=== PATIENT | female | born 1950 | race Caucasian/White ===

== ENCOUNTER 2021-09-18 08:29 | Day surgery (SDC) | payer MEDICARE, SELFPAY ==
[2021-09-14 13:39] VITALS: BMI 26.4
--- NOTE | 2021-09-17 12:07 | HO.ANESPROP2 ---
Documented by User: Cami Mccloud NP 09/17/21 12:08 HPI - Anesthesia Eval Consult details Narrative: 70yo F for Colonoscopy [facility] Past Medical History Medical History (Updated 09/14/21 @ 13:40 by Imelda Morris RN) Alopecia areata Asthma Chest tightness Hypothyroid Surgical History Surgical History (Updated 09/14/21 @ 11:48 by Imelda Morris RN) H/O colonoscopy Social History Social History Patient Tobacco Use Status: Never used Tobacco Use of substances other than those prescribed or required for medical reasons: No Advance Directives: No Advance Directives Information Provided: Yes Meds Allergies Allergy/AdvReac Type Severity Reaction Status Date / Time Penicillins [PCN] Allergy Severe Anaphylaxis Verified 09/14/21 11:46 Home Medications Medication Instructions Recorded Confirmed Last Taken Type albuterol sulfate 90 mcg/actuation 2 puff inhalation Q4-6H PRN 09/14/21 09/14/21 Unknown History aerosol inhaler (Ventolin HFA) Wheezing ibuprofen 200 mg tablet 200 mg PO Q6H PRN Pain 09/14/21 09/14/21 Unknown History levothyroxine 25 mcg tablet 25 mcg PO DAILY 09/14/21 09/14/21 Unknown History omega 9-xqs-luo-fish oil 1,200 mg 1 cap PO DAILY 09/14/21 09/14/21 Unknown History (144 mg-216 mg) capsule (Fish Oil) vitamin B complex 1 tab PO DAILY 09/14/21 09/14/21 Unknown History Exam Exam Date and Time: September 17, 2021 1207 Height,Weight and Vital Signs: Height 5 ft 2.5 in Weight 66.678 kg Assessment and Plan Assessment Anesthesia Assessment: Chart Reviewed Documented by User: Crystal Strong MD 09/18/21 09:22 [facility] Past Medical History Medical History (Updated 09/14/21 @ 13:40 by Iemlda Morris RN) Alopecia areata Asthma Chest tightness Hypothyroid Family History Family history of problems with anesthesia: No Surgical History Surgical History (Updated 09/14/21 @ 11:48 by Imelda Morris RN) H/O colonoscopy History of Problems with Anesthesia: No Social History Social History Patient Tobacco Use Status: Never used Tobacco Use of substances other than those prescribed or required for medical reasons: No Advance Directives: No Advance Directives Information Provided: Yes Meds Allergies Allergy/AdvReac Type Severity Reaction Status Date / Time Penicillins [PCN] Allergy Severe Anaphylaxis Verified 09/14/21 11:46 Home Medications Medication Instructions Recorded Confirmed Last Taken Type albuterol sulfate 90 mcg/actuation 2 puff inhalation Q4-6H PRN 09/14/21 09/14/21 Unknown History aerosol inhaler (Ventolin HFA) Wheezing ibuprofen 200 mg tablet 200 mg PO Q6H PRN Pain 09/14/21 09/14/21 Unknown History levothyroxine 25 mcg tablet 25 mcg PO DAILY 09/14/21 09/14/21 Unknown History omega 6-euv-ymo-fish oil 1,200 mg 1 cap PO DAILY 09/14/21 09/14/21 Unknown History (144 mg-216 mg) capsule (Fish Oil) vitamin B complex 1 tab PO DAILY 09/14/21 09/14/21 Unknown History Exam Height,Weight and Vital Signs: Height 5 ft 2.5 in Weight 66.678 kg Vital Signs Temp Pulse Resp BP Pulse Ox O2 Del Method 09/18/21 09:16 97.8 F 65 16 143/78 H 98 Room Air Airway Mallampati Class: II TM Dist: >3cm Neck ROM: Full Loose/Missing/Broken Teeth: No (Caps intact. No broken or loose) Heart: RRR Lungs: CTAB Assessment and Plan Assessment Anesthesia Assessment: Anesthesia Plan Discussed Final Anesthetic Review Family History of Problems with Anesthesia: No History of Problems with Anesthesia: No NPO: Yes ASA Class: II Final Preanesthetic Review: No Changes in Pt Med Stat, Meds/Allgs Chart Reviewed, Consent Obtained/Reviewed and Anes Risks/Benef Reviewed Patient Risk: Low Procedure Risk: Low Assessment/Block/Sedation in SS: Assess/Block/Sedation-SS Anesthetic Plan Anesthetic Plan: MAC: Disposition: Standard PACU
[2021-09-18 08:53] VITALS: BMI 25.5
[2021-09-18 09:16] VITALS: BP 143/78; PULSE 65; RESP 16; TEMP 36.6; O2SAT 98
[2021-09-18] MEDS: Lactated Ringers 1,000 ML 100 ML IVCONT (09:17)
--- NOTE | 2021-09-18 09:34 | MHC.SHP ---
Pre-Procedural Eval Section A Date of Service: 09/18/21 Section B Chief Complaint: screening Details of Present Illness: see H&P no changes Relevant Family History (Specify if Yes): No Relevant Social History: None Present Medications: see Short Stay Collaborative assessment Medical History: No relevant PMH History of Previous Operations: No relevant previous surgery Allergies: Allergies Allergy/AdvReac Type Severity Reaction Status Date / Time Penicillins [PCN] Allergy Severe Anaphylaxis Verified 09/14/21 11:46 Review of Systems Sugical H&P ROS: Negative: Constitution, Cardiovascular, Respiratory, Neurological, Psychiatric, Hem-Onc, Allergic/Immunologic, Gastrointestinal, Genitourinary, Musculoskeletal, Integumentary, Endocrine and Eyes/Ears/Nose/Throat Exam Surgical H&P Exam: Normal: HEENT, Normal: Heart, Normal: Lungs, Normal: Extremities, Normal: Abdomen, Normal: Skin and Normal: Neurological Plan I have reviewed the history and physical and performed a pertinent physical examination on my patient. No changes have occurred unless specified.
[2021-09-18 10:04] VITALS: BP 118/62; PULSE 68; RESP 18; TEMP 36.4; O2SAT 97
--- NOTE | 2021-09-18 10:16 | P.BOP_ITS ---
Brief Operative Note Date of Service: 09/18/21 Pre-op diagnosis: screening Post-op diagnosis: same Procedure: colonoscopy Surgeon: Darrell Bob Anesthesia: MAC Was an [employer] Measurer used for this Procedure?: No Estimated blood loss (mL): 2 Pathology: other Condition: stable Disposition: PACU
[2021-09-18 10:19] VITALS: BP 120/71; PULSE 60; RESP 17; TEMP 36.4; O2SAT 97
--- NOTE | 2021-09-18 22:03 | OP_ITS ---
SURGEON: Darrell Bob MD INDICATIONS: Colon cancer screening. PREOPERATIVE DIAGNOSIS: POSTOPERATIVE DIAGNOSIS: PROCEDURE PERFORMED: ESTIMATED BLOOD LOSS: COMPLICATIONS: ANESTHESIA: ASSISTANTS: SPECIMENS: PROCEDURE: Colonoscopy to the terminal ileum with biopsy. MEDICATIONS: Monitored anesthesia care. DESCRIPTION OF PROCEDURE: History and physical performed. The risks and benefits of the procedure were explained to the patient. Informed consent was obtained. The patient was placed in left lateral decubitus position. A digital rectal exam was performed and was found to be normal. The Olympus pediatric video colonoscope was introduced into the rectum and advanced to the cecum without difficulty. The cecum was identified by transillumination, palpation, and identification of ileocecal valve. Examination was performed. The scope was removed. She tolerated the procedure well, was taken to recovery in stable condition. FINDINGS: The terminal ileum was examined and appeared normal. The visualized colonic mucosa was normal. There was no evidence of colitis. Small internal hemorrhoids were noted on retroflexed examination. The quality of prep was good. Random sigmoid biopsies were obtained to rule out microscopic colitis. IMPRESSION: Normal colonoscopy. RECOMMENDATIONS: 1. Follow up as needed. 2. Repeat colonoscopy is recommended in 10 years for average risk individuals. MD YULIANA Frias/HELEN / [id number]
== END 2021-09-18 10:55 | disposition home or self-care (01) ==
PROVIDERS: PCP Internal Medicine; Visit Provider Internal Medicine Gastroenterology
PROC: 0DJD8ZZ Inspection of Lower Intestinal Tract, Via Natural or Artificial Opening Endoscopic (ICD-10-PCS; CPT 45378; principal; 2021-09-18 09:40)
DX: Z12.11 Encounter for screening for malignant neoplasm of colon (principal); Z80.0 Family history of malignant neoplasm of digestive organs; K64.8 Other hemorrhoids; J45.998 Other asthma; E03.9 Hypothyroidism, unspecified; L63.9 Alopecia areata, unspecified; J30.2 Other seasonal allergic rhinitis; Z79.1 Long term (current) use of non-steroidal anti-inflammatories (NSAID); Z79.899 Other long term (current) drug therapy; K59.01 Slow transit constipation
CPT/HCPCS: 45380; 88305; J2250; J2405